=== PATIENT | female | born 1960 | race African-American/Black ===

== ENCOUNTER 2018-12-19 20:55 | Emergency (ER) | payer SELFPAY ==
[2018-12-19] MEDS ORDERED: HYDROcodone/Acetaminophen 10/325 mg Tablet ONE (22:08)
--- NOTE | 2018-12-19 22:09 | RAD ---
CERVICAL SPINE TWO VIEWS: 12/19/18 HISTORY: Neck pain for three days without trauma. Large body habitus lowers the sensitivity of this study. Only the first five cervical vertebrae are c ompletely seen on the lateral view. C6, C7, and T1 are partially obscured. The tip of the odontoid an d portions of C1 are partially obscured. No significant malalignment. Minimal disc osteophytosis and facet arthrosis. IMPRESSION: Mild cervical spondylosis. No fracture or dislocation involving the visualized C-spine. POS: [facility]
== END 2018-12-19 22:11 | disposition home or self-care (01) ==
LOC: BURERS 20:55
DX: M54.2 Cervicalgia (principal); F17.210 Nicotine dependence, cigarettes, uncomplicated; K21.9 Gastro-esophageal reflux disease without esophagitis; E78.5 Hyperlipidemia, unspecified; E05.90 Thyrotoxicosis, unspecified without thyrotoxic crisis or storm; Z79.899 Other long term (current) drug therapy; Z79.82 Long term (current) use of aspirin; Z79.891 Long term (current) use of opiate analgesic
CPT/HCPCS: 72040

== ENCOUNTER 2023-06-26 13:23 | Emergency (ER) | payer SELFPAY ==
[2023-06-26] MEDS ORDERED: Ketorolac Tromethamine 60 MG/2 ML VIAL ONE (13:36)
[2023-06-26] MEDS ORDERED: Methocarbamol 500 MG TAB ONE (13:36)
== END 2023-06-26 14:01 | disposition home or self-care (01) ==
LOC: BURERS 13:23
DX: M25.512 Pain in left shoulder (principal); E03.9 Hypothyroidism, unspecified; K21.9 Gastro-esophageal reflux disease without esophagitis; E78.5 Hyperlipidemia, unspecified; I10 Essential (primary) hypertension; F17.210 Nicotine dependence, cigarettes, uncomplicated
CPT/HCPCS: 96372; J1885